=== PATIENT | female | born 1945 | race African-American/Black ===

== ENCOUNTER 2017-01-06 07:30 | Inpatient (IN) | payer MEDICARE, OTHER ==
[2016-12-30 11:06] LABS: HEMATOCRIT 35.1 % (36.0-47.0); HEMOGLOBIN 11.7 g/dL (12.0-15.5); MEAN CORPUSCULAR HEMOGLOBIN 28.6 pg (27.0-33.4); MEAN CORPUSCULAR HGB CONC 33.5 g/dL (32.0-36.0); MEAN CORPUSCULAR VOLUME 85 fl (80-97); RED BLOOD COUNT 4.11 10^6/uL (3.72-5.28); RED CELL DISTRIBUTION WIDTH 14.9 % (11.5-14.0); WHITE BLOOD COUNT 5.8 10^3/uL (4.0-10.5)
[2016-12-30 11:32] LABS: ANION GAP 9 (5-19); BLOOD UREA NITROGEN 20 mg/dL (7-20); CALCIUM 9.5 mg/dL (8.4-10.2); CARBON DIOXIDE 28 mmol/L (22-30); CHLORIDE 106 mmol/L (98-107); CREATININE RESULT 0.95 mg/dL (0.52-1.25); GLUCOSE 87 mg/dL (75-110); POTASSIUM 4.2 mmol/L (3.6-5.0); SODIUM 142.8 mmol/L (137-145)
--- NOTE | 2016-12-30 13:36 | EKG REPORT ---
SEVERITY:- ABNORMAL ECG - SINUS RHYTHM BORDERLINE LEFT AXIS DEVIATION BORDERLINE R WAVE PROGRESSION, ANTERIOR LEADS ABNORMAL T, CONSIDER ISCHEMIA, DIFFUSE LEADS : Confirmed by: May Parrish 30-Dec-2016 13:36:31
[~2017-01-06 07:30] MED LIST: AMPICILLIN SODIUM/SULBACTAM NA 3 GM in NORMAL SALINE 100 ML IV PRN; DEXMEDETOMIDINE INJ 80 MCG/20 ML VIAL IV ONE; EPHEDRINE SULFATE INJ 50 MG/1 ML AMPULE ONE; FENTANYL CITRATE INJ/PF 250 MCG/5 ML AMPULE ONE; LACTATED RINGERS 1000 ML IV PRN; LIDOCAINE 0.5% INJ-PF (5 MG/ML) 50 ML SDV SUBCUT PRN; MIDAZOLAM 2 MG/2 ML INJ ONE; MORPHINE SULFATE 10 MG/ML INJ ONE; NORMAL SALINE 1000 ML 1,000 ML IV PRN; PROPOFOL INJ 200 MG/20 ML VIAL IV ONE
[2017-01-06] MEDS: BUPIVACAINE HCL 0.25 % INJ/PF (2.5 MG/1 ML) 30 ML VIAL ONE (08:00)
[2017-01-06] MEDS: BUPIVACAINE INJ/PF LIPOSOME/PF 266 MG/20 ML SDV ONE (08:00)
[2017-01-06] MEDS ORDERED: FENTANYL CITRATE INJ/PF 100 MCG/2 ML AMPUL ONE (10:49)
[2017-01-06] MEDS ORDERED: KETOROLAC TROMETHAMINE INJ/PF 30 MG/1 ML SDV ONE ×2 (13:37→18:06)
[2017-01-06] MEDS ORDERED: DEXAMETHASONE SOD PHOSPHATE INJ 4 MG/1 ML VIAL ONE (19:15)
[2017-01-06] MEDS ORDERED: GLYCOPYRROLATE INJ 0.4 MG/2 ML VIAL ONE (19:15)
[2017-01-06] MEDS ORDERED: SUCCINYLCHOLINE CHLORIDE INJ 200 MG/10 ML VIAL ONE (19:15)
[2017-01-06] MEDS ORDERED: LIDOCAINE 2% INJ-PF (20 MG/ML) 10 ML AMPUL ONE (19:15)
[2017-01-06] MEDS ORDERED: NEOSTIGMINE METHYLSULFATE 10 MG/10 ML VIAL ONE (19:15)
[2017-01-06] MEDS ORDERED: ROCURONIUM BROMIDE INJ 50 MG/5 ML VIAL IV ONE (19:15)
[2017-01-06] MEDS ORDERED: ONDANSETRON HCL INJ/PF 4 MG/2 ML SDV ONE (19:15)
[2017-01-06] MEDS ORDERED: ONDANSETRON HCL INJ/PF 4 MG/2 ML SDV IV PRN (19:27)
[2017-01-06] MEDS ORDERED: MORPHINE SULFATE 10 MG/ML INJ IV PRN (19:27)
--- NOTE | 2017-01-06 22:57 | OPERATIVE REPORT E ---
Operative Report NAME: SONIA STRONG : 1945 AGE: 71Y DATE OF SURGERY: ROOM: PREOPERATIVE DIAGNOSIS: Tubulovillous adenoma of the cecum. POSTOPERATIVE DIAGNOSES: 1. Tubulovillous adenoma of the cecum. 2. Intraabdominal adhesions. OPERATION: 1. Laparoscopic right hemicolectomy. 2. Intraoperative laparoscopic lysis of adhesions. 3. Ileotransverse colostomy. SURGEON: RINA FLOREZ M.D. FRAME CATCHER: CINTIA CARLIN PA-C COMPLICATIONS: None. ESTIMATED BLOOD LOSS: 50 mL. DRAINS: One large Billy in the pelvis. FINDINGS: See below. SUMMARY OF PROCEDURE: The patient was brought from the preop holding area to the main operating room. General anesthesia was induced. Peripheral IVs were established and functioning satisfactorily. Clay catheter was inserted uneventfully. The arms were tucked to the patient's side, and the legs in the supine position. Patient was secured to the operating table with blankets and tape. The abdomen was exposed, prepped and draped in a sterile fashion. Surgical plan and surgical time-out were conducted. Suitable site for placement of ports was chosen at the umbilicus, left mid-upper quadrant, left lower quadrant, and suprapubic area. Of note, the patient had previous section with scar from the umbilicus to the pelvic region. Left upper quadrant skin was anesthetized with 0.25% Marcaine. A knife wound was made in the skin. Veress needle inserted in the peritoneal cavity, and pneumoperitoneum was established. The Veress needle was removed, and a 5-mm port was inserted, and a 5-mm viewing scope was inserted. Under direct visualization 2 additional ports were placed, 1 in the left lower quadrant and 1 at the umbilicus, all 5 mm. Findings were significant for no evidence of abdominal adhesions between the abdominal wall and the viscera. We put the patient into slight Trendelenburg position and rotated her to the left. We found the omentum to be extremely generous, and adhesed to the right colon. Photos were taken. We used the Advance LigaSure to take down these adhesions. This proceeded uneventfully. We now directed out attention to the right lower quadrant. The patient had adhesions between several loops of small bowel and the right lower pelvic wall. These were taken down with LigaSure dissection. The appendix was visualized coming off of the cecum in its normal anatomic location. It, too, was stuck to the lateral pelvic wall, and this was mobilized, again with traction and LigaSure dissection. Now we had the ileocecal area suitably mobilized up. We identified the ileocolic vessels, and then entered the ileocecal mesentery using cautery. We got into the appropriate plane and began dissecting the right mesocolon off of the retroperitoneal structures. Unfortunately, there was a fair amount of thick fatty tissue here, and the plane of separation was obscured. Despite multiple maneuvers to optimize exposure, the dissection remained tedious. Nonetheless, we were able to open up the retroperitoneal plane reasonably well. We now began mobilizing the right colon from the tyohfay-ny-wszkxb approach. Graspers were repositioned, and the cecum and appendix were taken off of the lateral pelvic wall completely. We then retracted the right colon medially, and opened up the white line of Toldt. We took this all the way to the hepatic flexure. At the level of the hepatic flexure there were dense adhesions between the omentum and the lateral pelvic wall. Much of these were taken down using direct visualization and electrocautery under great care. Because of the very large omentum and the previously described adhesions, we now had a fairly sloppy free omentum that was somewhat cumbersome in terms of providing optimal visualization of the hepatic flexure. Therefore, we chose to reposition our graspers, and our point of dissection shifted to the transverse colon. The transverse colon was identified, the greater omentum opened at the level of the gastrocolic ligament, and we got into an appropriate plane to begin retracting the proximal transverse colon caudad, leaving the adhesions toward the liver in a cephalad direction. Of note, the patient had no history of cholecystectomy; however, there were dense adhesions between the liver, covering the gallbladder, and the hepatocolic ligament. This made for rather challenging separation as the planes were nearly completely obliterated. Nonetheless, with good traction we were able to use the LigaSure device to continue the dissection, open this area up, and eventually communicate with our previous line of dissection laterally, thereby freeing up the hepatic flexure in its entirety. The hepatic flexure was swept caudad, and the retroperitoneum exposed. We took the level of dissection up to, but did not expose significantly the duodenum. At this point I felt that it would be appropriate to exteriorize the right colon. Again, the amount of mobilized transverse colon was limited. We were dealing with a known tubulovillous adenoma. I felt that the extent of resection planned would be appropriate. The laparoscopic instruments were removed from the peritoneal cavity, and the 5-mm port at the umbilicus was removed. We opened up the umbilicus above and below with a #10 blade up to approximately a 5-cm incision. Fascia was opened, and a handheld wound protector was inserted into position. I was now able to get my right hand into the peritoneal cavity and bring up the right colon. To our satisfaction the terminal ileum was freed up nicely, as was the appendix and cecum, and the hepatic flexure with a limited amount of transverse colon exposed. At this point I felt we could safely proceed with the transection. A suitable site for division of the terminal ileum was chosen, and this was effected with a single firing of the JACQUELYN-55 stapler, blue load. Ileocolic, right colic vessels were taken down between clamps and #0 Vicryl ties. A suitable site for transection of the transverse colon was chosen to the right of the middle colic vessels. Transverse colon was divided transversely with a single firing of the blue load JACQUELYN-55 stapler. Remaining vascular attachments were taken down, and pedicle tied off with a #0 Vicryl suture. The specimen was passed off to the back table, opened up by Dr. Florez, and found to contain a 3.5 to 5 cm irregular cauliflower-shaped mass at the appendiceal orifice. There was an associated satellite polyp very small. There was no palpable adenopathy in the mesentery. We returned to the peritoneal cavity and identified our terminal ileum which was maintained in a proper orientation throughout this exteriorization, as was the transverse colon. We brought these 2 loops of intestines adjacent to each other, thereby effecting a zuvz-ly-xjux functional end-to-end anastomosis. This was actuated by a single firing of the JACQUELYN-55 stapler. The anastomosis was patulous. There was no bleeding from the staple lines intraluminally. The colotomy and ileotomy were closed as a unit with a single firing of the TA-60 stapler. Anastomosis was viable under no tension and patent. The mesenteric defect was closed with 2 ivjjah-hu-dwxuq 3-0 Vicryl sutures. We dumped the anastomosis back into the peritoneal cavity and twisted off the wound protector, and reestablished pneumoperitoneum. We reinserted the laparoscope, checked the viscera, and they were in good condition. There was no evidence of bowel leak or mechanical bleeding. A large Billy drain was placed in the suprapubic port site incision. Of note, earlier in the dissection we did place a left lower quadrant 5-mm port, so a total of three 5-mm ports were used in addition to the midline incision. The Billy drain was hooked to suction. There was no mechanical bleeding intraperitoneally. Nasogastric tube was confirmed to be in good position. We felt the operation was complete. All ports and wound protectors removed uneventfully. Midline wound closed with 2 double-stranded #1 PDS sutures. The skin approximated with jason, drain secured to the skin with 2-0 Prolene suture, and 40 mL of dilute Exparel injected in the subcutaneous tissue. Patient tolerated the procedure well, extubated, and taken to recovery in stable condition. Cintia Carlin PA-C, assisted with port insertion, tissue retraction, and wound closure. CC:FLOYD FONSECA M.D., TIMOTHY M.D. > DICTATING PHYSICIAN: RINA FLOREZ M.D. [id number] PHY#: [id number] ID: [id number] JOB#: [id number] ACCT: [id number] cc: > MEENU
[2017-01-07] MEDS: KETOROLAC TROMETHAMINE INJ/PF 30 MG/1 ML SDV IV SCH ×4 (01:19→18:33)
[2017-01-07] MEDS: DEXTROSE 5%-LACTATED RINGERS 1,000 ML IV PRN ×3 (04:02→22:48)
[2017-01-07] MEDS: ACETAMINOPHEN 100 ML IV SCH ×4 (04:02→21:42)
[2017-01-07] MEDS: BUPIVACAINE INJ/PF LIPOSOME/PF 266 MG/20 ML SDV ONE (08:00)
[2017-01-07] MEDS: BUPIVACAINE HCL 0.25 % INJ/PF (2.5 MG/1 ML) 30 ML VIAL ONE (08:00)
[2017-01-08] MEDS: KETOROLAC TROMETHAMINE INJ/PF 30 MG/1 ML SDV IV SCH ×2 (00:55→05:16)
[2017-01-08] MEDS: ACETAMINOPHEN 100 ML IV SCH ×2 (03:37→09:50)
[2017-01-08] MEDS: HYDROCHLOROTHIAZIDE 25 MG TABLET PO SCH (09:48)
[2017-01-08] MEDS: VALSARTAN 160 MG TABLET PO SCH (09:48)
[2017-01-08] MEDS: AMLODIPINE BESYLATE 5 MG TABLET PO SCH (09:48)
[2017-01-08] MEDS ORDERED: (PENDING PHARMACY ID) (Valsartan/Hydrochlorothiazide [Valsartan-Hctz 320-25 Mg Tab] 1 TAB) PO SCH (10:00)
[2017-01-08] MEDS ORDERED: DOCUSATE SODIUM 100 MG CAPSULE PO SCH (10:00)
--- NOTE | 2017-01-08 10:13 | OPERATIVE REPORT E ---
Operative Report NAME: SONIA STRONG : 1945 AGE: 71Y DATE OF SURGERY: 01/08/2017 ROOM: 529 PREOPERATIVE DIAGNOSIS: SYMPTOMATIC CHOLELITHIASIS, CHOLECYSTITIS. POSTOPERATIVE DIAGNOSIS: SYMPTOMATIC CHOLELITHIASIS, CHOLECYSTITIS. PROCEDURE: Laparoscopic cholecystectomy. SURGEON: RINA HUANG M.D. SHEEP KILLER: GEORGES Meeks ANESTHESIA: General. COMPLICATIONS: None. ESTIMATED BLOOD LOSS: Scant. DRAINS: None. TISSUE REMOVED OR ALTERED: One gallbladder with contents. SUMMARY OF PROCEDURE: The patient was taken from preoperative holding area to the main operating room where general anesthesia was induced. Abdomen was exposed, prepped and draped in sterile fashion. Instrumentation was set up for laparoscopic cholecystectomy. Surgical plan and a surgical time out are conducted. A supraumbilical vertical incision made with a knife. The Veress needle inserted into the peritoneal cavity and a pneumoperitoneum was established. Veress needle was removed. A 5 mm port was established. A 5 mm flexible viewing scope was established. Under direct visualization, 3 additional 5 mm ports were placed: One in the subxiphoid and 2 into the subcostal position. Findings were significant for no evidence of visceral injury or vascular injury upon entry with the trocars. Gallbladder had adhesions between the infundibulum and the hepatoduodenal area. These were taken down sharply. Graspers were placed on the fundus and the infundibulum and the gallbladder distracted from the liver. The neck of the gallbladder and its junction with the cystic duct was dissected out. The anatomy here was classic. Cystic artery and cystic duct were isolated, [place] opened, and the critical view obtained. Cystic artery was clipped twice proximally, once distally, divided with scissors. Cystic duct was photographed, clipped twice proximally, once distally, divided with scissors. Photos were taken prior to division of respective structures. Gallbladder is removed from the liver bed using hook cautery resection and brought out of the patient through the supraumbilical port site without stone spillage or bile spillage. We returned to the peritoneal cavity and checked for bleeding and bile leak and there was none. A small spot on the liver edge was oozing and this was handled with electrocautery. We leveled the patient out to check for bleeding; there was none. We felt the operation was complete. Sponge and needle counts correct. All ports removed under direct visualization. Pneumoperitoneum evacuated. Wounds closed with 3-0 Vicryl, Benzoin, and Steri-Strips. Patient tolerated the procedure well; taken to recovery in stable condition. ADDENDUM: GEORGES Meeks, provided assistance with port insertion, tissue retraction, and wound closure. DICTATING PHYSICIAN: RINA HUANG M.D. [id number] PHY#: [id number] ID: [id number] JOB#: [id number] ACCT: [id number] cc:RINA HUANG M.D. >
--- NOTE | 2017-01-08 11:58 | PROGRESS NOTE E ---
Progress Note NAME: SONIA STRONG : 1945 AGE: 71Y DATE: 01/08/2017 ROOM: 529 SUBJECTIVE: This is the second postoperative day for the patient undergoing right hemicolectomy for tubulovillous adenoma to the cecum. The patient has done well, tolerating clear liquids, having a bowel movement, and voiding without difficulty. Her pain has been well managed. OBJECTIVE: VITAL SIGNS: Stable. Blood pressure diastolic running in the upper 70s, low 80s. She is on her preoperative blood pressure medication. GENERAL: No acute distress. ABDOMEN: All incisions healing satisfactorily. Dressings removed. The abdomen is soft, nontender, no peritoneal signs. LABORATORY PROFILE: None. IMPRESSION: POSTOPERATIVE DAY 2 STATUS POST LAPAROSCOPIC RIGHT HEMICOLECTOMY FOR TUBULOVILLOUS ADENOMA OF THE CECUM, DOING WELL, NO COMPLICATIONS. PLAN: 1. Advance diet to full liquid. 2. Leave IV fluids and IV out. 3. Switch to p.o. pain medications; add Colace. 4. Shower, ambulate, and anticipate discharge in the next 12-18 hours. DICTATING PHYSICIAN: RINA HUANG M.D. [id number] PHY#: [id number] ID: [id number] JOB#: [id number] ACCT: [id number] cc: >
[2017-01-08] MEDS: OXYCODONE-ACETAMINOPHEN 5-325 MG TABLET PO PRN (20:01)
[2017-01-09 07:45] VITALS: BP 115/69
[2017-01-09] MEDS: OXYCODONE-ACETAMINOPHEN 5-325 MG TABLET PO PRN (08:27)
[2017-01-09] MEDS ORDERED: DOCUSATE SODIUM 100 MG CAPSULE PO ONE (10:00)
[2017-01-09] MEDS: VALSARTAN 160 MG TABLET PO SCH (10:03)
[2017-01-09] MEDS: AMLODIPINE BESYLATE 5 MG TABLET PO SCH (10:04)
[2017-01-09] MEDS: HYDROCHLOROTHIAZIDE 25 MG TABLET PO SCH (10:04)
[2017-01-10] MEDS ORDERED: DOCUSATE SODIUM 100 MG CAPSULE PO SCH (08:00)
--- NOTE | 2017-01-29 21:43 | DISCHARGE SUMMARY E ---
Discharge Summary NAME: SONIA STRONG : 1945 AGE: 71Y ADMITTED: 01/06/2017 DISCHARGED: 01/09/2017 FINAL DIAGNOSIS: Tubulovillous adenoma of the cecum. PROCEDURE DONE: Laparoscopic right hemicolectomy, intraoperative lysis of adhesions on 01/06/[address] Florez. HOSPITAL COURSE: Postoperatively patient did well. On the second postop day patient able to tolerate soft diet and patient subsequently discharged more improved on 01/09/2017 with above final diagnosis. Patient to be followed up at the [facility] in 1-2 weeks. Patient advised not to do any heavy lifting more than 10 pounds for the next week or until seen in the clinic. She can have a regular diet. DICTATING PHYSICIAN: SANTINO STERN M.D. [id number] PHY#: [id number] ID: [id number] JOB#: [id number] ACCT: [id number] cc:RINA FLOREZ M.D. SANTINO STERN M.D. >
== END 2017-01-09 11:52 | disposition home or self-care (01) | DRG 330 ==
LOC: 5 23:43
PROVIDERS: ADMIT Surgery; ATTEND Surgery
PROC: 0D1L4Z4 Bypass Transverse Colon to Cutaneous, Percutaneous Endoscopic Approach (ICD-10-PCS; 2017-01-06)
PROC: 0DNS4ZZ (ICD-10-PCS; 2017-01-06)
PROC: 0DTF4ZZ Resection of Right Large Intestine, Percutaneous Endoscopic Approach (ICD-10-PCS; principal; 2017-01-06 07:30)
PROC: 0FT44ZZ Resection of Gallbladder, Percutaneous Endoscopic Approach (ICD-10-PCS; 2017-01-08)
DX: D12.0 Benign neoplasm of cecum (principal); K80.10 Calculus of gallbladder with chronic cholecystitis without obstruction; K63.9 Disease of intestine, unspecified; I10 Essential (primary) hypertension
CPT/HCPCS: 36415; 790; 80048; 84132; 85027; 88307; 93005; 93010; C9290; J0131; J0295; J0330; J1100; J1885; J2250; J2270; J2405; J2704; J3010; J3490

== ENCOUNTER → 2017-10-15 | Outpatient (CLI) | payer MEDICARE ==
--- NOTE | 2017-10-15 19:36 | WOMENS IMAGING REPORT ---
EXAM DESCRIPTION: BILAT SCREENING MAMMO W/CAD COMPLETED DATE/TIME: 10/15/2017 11:14 am REASON FOR STUDY: ROUTINE SCREENING; Z12.31 Z12.31 ENCNTR SCREEN MAMMOGRAM FOR MALIGNANT NEOPLASM O F KEYA COMPARISON: Multiple since 2012 TECHNIQUE: Standard craniocaudal and mediolateral oblique views of each breast recorded using weartolooka l acquisition. LIMITATIONS: None. FINDINGS: No masses, calcifications or architectural distortion. No areas of suspicion. Read with the assistance of CAD. .[facility] - R2 Cenova Version 1.3 .[facility] Imaging - R2 Cenova Version 1.3 .[facility] - R2 Cenova Version 2.4 .[facility] [place] [place] - R2 Cenova Version 2.4 .[facility] - R2 Mun[employer] Worker Version 9.2 IMPRESSION: NORMAL MAMMOGRAM. BIRADS 1. BREAST DENSITY: b. There are scattered areas of fibroglandular density. BIRAD: 1 NEGATIVE RECOMMENDATION: ROUTINE SCREENING Please continue yearly screening in September 2018. Please consider bilateral screening tomosynthesis COMMENT: The patient has been notified of the results by letter per MQSA requirements. Additional no tification policies are in place for contacting patient with suspicious or incomplete findings. Quality ID #225: The [employer] recommends an annual screening mammogram for women aged 40 years or over. This facility utilizes a reminder system to ensure that all patients receive reminder letters, and/or direct phone calls for appointments. This includes reminders for routine scr eening mammograms, diagnostic mammograms, or other Breast Imaging Interventions when appropriate. Th is patient will be placed in the appropriate reminder system. The [employer] (ACR) has developed recommendations for screening MRI of the breast s in certain patient populations, to be used in conjunction with mammography. Breast MRI surveillanc e may be appropriate for women with more than 20% lifetime risk of developing breast cancer as deter mined by genetic testing, significant family history of the disease, or history of mantle radiation f or Hodgkins Disease. ACR Practice Guidelines 2008. TECHNICAL DOCUMENTATION: FINDING NUMBER: (1) ASSESSMENT: (1) JOB ID: [id number] [employer]- All Rights Reserved Reading location - IP/workstation name: [email or web address]
== END ==
LOC: WI 10:02
PROVIDERS: ATTEND Family Medicine
DX: Z12.31 Encounter for screening mammogram for malignant neoplasm of breast (principal)
CPT/HCPCS: 77067

== ENCOUNTER → 2020-02-15 | Outpatient (CLI) | payer MEDICARE, OTHER ==
--- NOTE | 2020-02-15 15:02 | WOMENS IMAGING REPORT ---
EXAM DESCRIPTION: BILAT SCREENING MAMMO W/CAD IMAGES COMPLETED DATE/TIME: 02/15/2020 10:40 am REASON FOR STUDY: Z12.31 ENCOUNTER FOR SCREENING MAMMOGRAM FOR MALIGNANT NEOPLASM OF BREAST Z12.31 ENCNTR SCREEN MAMMOGRAM FOR MALIGNANT NEOPLASM OF KEYA COMPARISON: 10/15/2017, 09/20/2015, 09/04/2014 EXAM PARAMETERS: Standard craniocaudal and mediolateral oblique views of each breast recorded using digital acquisition. . Read with the assistance of CAD. .[facility] - R2 [employer] Version 2.4 LIMITATIONS: None. FINDINGS: No suspicious masses, suspicious calcifications or architectural distortion. No areas of c oncern. IMPRESSION: NEGATIVE MAMMOGRAM. BIRADS 1 BREAST DENSITY: b. There are scattered areas of fibroglandular density. BIRAD: ASSESSMENT: 1 NEGATIVE RECOMMENDATION: ROUTINE SCREENING COMMENT: The patient has been notified of the results by letter per MQSA requirements. Additional no tification policies are in place for contacting patient with suspicious or incomplete findings. Quality ID #225: The [employer] recommends an annual screening mammogram for women aged 40 years or over. This facility utilizes a reminder system to ensure that all patients receive reminder letters, and/or direct phone calls for appointments. This includes reminders for routine scr eening mammograms, diagnostic mammograms, or other Breast Imaging Interventions when appropriate. Th is patient will be placed in the appropriate reminder system. TECHNICAL DOCUMENTATION: FINDING NUMBER: (1) ASSESSMENT: (1) JOB ID: [id number] [employer]- All Rights Reserved Reading location - IP/workstation name: [email or web address]
== END ==
LOC: WI 11:04
PROVIDERS: ATTEND Registered Nurse
DX: Z12.31 Encounter for screening mammogram for malignant neoplasm of breast (principal)
CPT/HCPCS: 77067